=== PATIENT | male | born 2005 | race Caucasian/White ===

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

== ENCOUNTER 2023-01-28 21:26 | Emergency (ER) | payer MEDICAID, MEDICARE ==
[~2023-01-28] VITALS: Ht 175.3 cm; Wt 118.0 kg
[2023-01-28 21:58] VITALS: BP 153/86; RESP 14; TEMP 98; O2SAT 100
[2023-01-28 21:59] VITALS: PULSE 82
[2023-01-29 03:18] LABS: BASOPHILS % 0.5 % (0.0-2.0); EOSINOPHILS % 1.1 % (0.0-5.0); HEMATOCRIT. 47.6 % (42.0-52.0); HEMOGLOBIN. 16.4 g/dL (14.0-18.0); LYMPHOCYTES % 35.1 % (20.0-50.0); MEAN CORPUSCULAR HEMOGLOBIN 28.4 pg (28.0-32.0); MEAN CORPUSCULAR VOLUME 82.5 fL (80.0-94.0); MEAN PLATELET VOLUME 9.1 fl (7.4-10.4); MONOCYTES % 5.1 % (2.0-8.0); NEUTROPHILS % 58.2 % (40.0-76.0); PLATELET 230 x1000/uL (130-400); RED BLOOD CELL COUNT 5.77 mill/uL (4.7-6.1); RED CELL DISTRIBUTION WIDTH 12.8 % (11.6-14.6)
[2023-01-29 03:31] LABS: CHLORIDE 109 mEq/L (98-107)
== END 2023-01-29 04:43 | disposition left against medical advice (07) ==
LOC: ER 21:26
DX: R07.89 Other chest pain (principal); F41.0 Panic disorder [episodic paroxysmal anxiety]; Z90.49 Acquired absence of other specified parts of digestive tract
CPT/HCPCS: 36415; 71045; 80053; 85025; 85379; 93005; 99285